=== PATIENT | male | born 1995 | race Caucasian/White ===

== ENCOUNTER → 2016-07-10 | Outpatient (CLI) | payer OTHER | LOC: COL.RAD 10:00 | DX: C81.18 Nodular sclerosis Hodgkin lymphoma, lymph nodes of multiple sites (principal); N20.0 Calculus of kidney | CPT/HCPCS: Q9967 ==

== ENCOUNTER → 2016-10-09 | Outpatient (CLI) | payer OTHER | LOC: COL.RAD 08:30 | DX: C81.18 Nodular sclerosis Hodgkin lymphoma, lymph nodes of multiple sites (principal) | CPT/HCPCS: Q9967 ==

== ENCOUNTER → 2017-01-08 | Outpatient (CLI) | payer OTHER | LOC: COL.RAD 10:08 | DX: C85.90 Non-Hodgkin lymphoma, unspecified, unspecified site (principal) | CPT/HCPCS: Q9967 ==

== ENCOUNTER 2018-09-23 08:00 | Outpatient (RCR) | payer OTHER | END 2018-09-28 | disposition home or self-care (01) | LOC: WSOT | DX: S61.512D Laceration without foreign body of left wrist, subsequent encounter (principal); W45.8XXD Other foreign body or object entering through skin, subsequent encounter ==